=== PATIENT | female | born 1980 | race Caucasian/White ===

== ENCOUNTER 2021-02-02 15:28 | Emergency (ER) | payer MEDICAID ==
--- NOTE | 2021-02-02 16:07 | EDM.PDOC ---
ED HPI GENERAL MEDICAL PROBLEM - General Chief Complaint: Respiratory Problem Stated Complaint: TROUBLES BREATHING Time Seen by Provider: 02/02/21 15:44 Source of Information: Reports: Patient, RN Notes Reviewed History Limitations: Reports: No Limitations - History of Present Illness INITIAL COMMENTS - FREE TEXT/NARRATIVE: Patient is a 40-year-old female presenting to the emergency department with complaints of cough, shortness of breath, congestion, sinus pressure with ear pressure, and sore throat that began on Monday. Reports that her son was sick first and then she developed symptoms shortly thereafter. She has had pneumonia in the past and is concerned that this could be what is wrong. She did have Covid in August, however was asymptomatic. Denies any fever or chills. She has no chronic lung conditions, however she is a smoker. She tried using her son's albuterol inhaler at home and states that it provided little relief. Vital signs on triage were found to be normal. She is afebrile and oxygen saturation was 95% on room air. - Related Data Allergies Allergy/AdvReac Type Severity Reaction Status Date / Time Penicillins Allergy Hives Verified 02/02/21 15:54 succinylcholine Allergy Cardiac Verified 02/02/21 15:54 Arrest Home Meds: Home Meds Albuterol/Ipratropium [DuoNeb 3.0-0.5 MG/3 ML] 3 ml .XX Q4H PRN #15 neb 02/02/21 [Rx] Celecoxib 200 mg PO DAILY 02/02/21 [History] Spironolactone 50 mg PO DAILY 02/02/21 [History] Venlafaxine HCl [Venlafaxine HCl ER] 150 mg PO DAILY 02/02/21 [History] levoFLOXacin [Levaquin] 750 mg PO DAILY 5 Days #5 tab 02/02/21 [Rx] metFORMIN [Glucophage] 500 mg PO DAILY 02/02/21 [History] Past Medical History - Past Health History Medical/Surgical History: Denies Medical/Surgical History Respiratory History: Reports: Pneumonia, Recurrent - Infectious Disease History Infectious Disease History: Reports: Novel Coronavirus - Past Surgical History HEENT Surgical History: Reports: Tonsillectomy Other Female Surgeries/Procedures: exploratory laproscopy Neurological Surgical History: Reports: Lumbar Spine Social & Family History - Tobacco Use Tobacco Use Status *Q: Current Every Day Tobacco User Years of Tobacco use: 27 Packs/Tins Daily: 2 - Recreational Drug Use Recreational Drug Use: No ED ROS GENERAL - Review of Systems Review Of Systems: See Below Constitutional: Denies: Fever, Chills, Weakness HEENT: Reports: Ear Pain, Rhinitis, Sinus Problem, Throat Pain Respiratory: Reports: Shortness of Breath, Wheezing, Cough, Sputum. Denies: Pleuritic Chest Pain, Hemoptysis Cardiovascular: Reports: No Symptoms Endocrine: Reports: No Symptoms GI/Abdominal: Reports: No Symptoms : Reports: No Symptoms Musculoskeletal: Reports: No Symptoms Skin: Reports: No Symptoms Neurological: Reports: No Symptoms Psychiatric: Reports: No Symptoms Hematologic/Lymphatic: Reports: No Symptoms Immunologic: Reports: No Symptoms ED EXAM, GENERAL - Physical Exam Exam: See Below Exam Limited By: No Limitations General Appearance: Alert, WD/WN, No Apparent Distress Respiratory/Chest: No Respiratory Distress, Crackles (Fine to the right lower lobe), Wheezing (Faint expiratory throughout) Cardiovascular: Normal Peripheral Pulses, Regular Rate, Rhythm, No Edema, No Gallop, No JVD, No Murmur, No Rub GI/Abdominal: Normal Bowel Sounds, Soft, Non-Tender, No Organomegaly, No Distent ion, No Abnormal Bruit, No Mass Neurological: Alert, Oriented, CN II-XII Intact, Normal Cognition, Normal Gait, Normal Reflexes, No Motor/Sensory Deficits Psychiatric: Normal Affect, Normal Mood Skin Exam: Warm, Dry, Intact, Normal Color, No Rash Course - Vital Signs Last Recorded V/S: Last Vital Signs Temp 96.8 F L 02/02/21 15:42 Pulse 79 02/02/21 18:42 Resp 20 02/02/21 18:42 BP 122/66 02/02/21 18:42 Pulse Ox 94 L 02/02/21 18:42 - Orders/Labs/Meds Orders: Active Orders 24 hr Category Date Time Status Chest 1V Frontal [CR] Stat Exams 02/02/21 15:52 Taken Labs: Laboratory Tests 02/02/21 02/02/21 02/02/21 Range/Units 16:18 16:40 16:40 WBC 14.23 H (3.98-10.04) K/mm3 RBC 5.24 H (3.98-5.22) M/mm3 Hgb 15.9 H (11.2-15.7) gm/dl Hct 48.5 H (34.1-44.9) % MCV 92.6 (79.4-94.8) fl MCH 30.3 (25.6-32.2) pg MCHC 32.8 (32.2-35.5) g/dl RDW Std Deviation 52.5 H (36.4-46.3) fL Plt Count 297 (182-369) K/mm3 MPV 9.8 (9.4-12.3) fl Neut % (Auto) 59.8 (34.0-71.1) % Lymph % (Auto) 28.0 (19.3-51.7) % [place]urel % (Auto) 7.9 (4.7-12.5) % Eos % (Auto) 3.7 (0.7-5.8) Baso % (Auto) 0.2 (0.1-1.2) % Neut # (Auto) 8.52 H (1.56-6.13) K/mm3 Lymph # (Auto) 3.98 H (1.18-3.74) K/mm3 Laurel # (Auto) 1.13 H (0.24-0.36) K/mm3 Eos # (Auto) 0.52 H (0.04-0.36) K/mm3 Baso # (Auto) 0.03 (0.01-0.08) K/mm3 Manual Slide Review Sodium 138 (136-145) mEq/L Potassium 4.5 (3.5-5.1) mEq/L Chloride 102 (98-107) mEq/L Carbon Dioxide 28 (21-32) mEq/L Anion Gap 12.5 (5-15) BUN 16 (7-18) mg/dL Creatinine 0.8 (0.55-1.02) mg/dL Est Cr Clr Drug Dosing 71.24 mL/min Estimated GFR (MDRD) > 60 (>60) mL/min BUN/Creatinine Ratio 20.0 H (14-18) Glucose 89 (70-99) mg/dL Calcium 9.2 (8.5-10.1) mg/dL Total Bilirubin 0.3 (0.2-1.0) mg/dL AST 23 (15-37) U/L ALT 43 (14-59) U/L Alkaline Phosphatase 73 (46-116) U/L C-Reactive Protein 4.0 H* (<1.0) mg/dL Total Protein 7.7 (6.4-8.2) g/dl Albumin 3.4 (3.4-5.0) g/dl Globulin 4.3 gm/dL Albumin/Globulin Ratio 0.8 L (1-2) SARS-CoV-2 RNA (MARJAN) Negative (NEGATIVE) Meds: Medications Discontinued Medications Generic Name Dose Route Start Last Admin Trade Name Freq PRN Reason Stop Dose Admin Albuterol/Ipratropium 3 ml 02/02/21 17:57 02/02/21 18:09 Albuterol/Ipratropium 3.0-0.5 Mg/3 Ml Neb Soln NEB 02/02/21 17:58 3 ml ONETIME ONE Administration - Re-Assessments/Exams Free Text/Narrative Re-Assessment/Exam: 02/02/21 18:25 Chest x-ray does not show any definitive areas of pneumonia, however there is shadowing in the bilateral lower lobes so it is difficult to rule out a possible pneumonia. Patient's white blood cells are elevated at 14.23 and CRP elevated at 4.0. Patient takes Bactrim daily for prevention of hidradenitis suppurative. She reports that she did have improvement in her shortness of breath after the DuoNeb treatment. Given her elevation in white blood cells and CRP, I will treat for pneumonia. Since she is currently on antimicrobial, Levaquin would be the appropriate treatment. Discussed risks of tendon rupture with this medication and patient verbalized understanding. I will also send prescription for DuoNeb breathing treatments. Discussed return precautions. Discharge instructions as documented. Departure - Departure Time of Disposition: 18:25 Disposition: Home, Self-Care 01 Condition: Good Clinical Impression: Pneumonia Qualifiers: Pneumonia type: due to other aerobic Gram-negative bacteria Laterality: unspecified laterality Lung location: unspecified part of lung Qualified Code(s): J15.6 - Pneumonia due to other Gram-negative bacteria - Discharge Information *PRESCRIPTION DRUG MONITORING PROGRAM REVIEWED*: No *COPY OF PRESCRIPTION DRUG MONITORING REPORT IN PATIENT DIMITRIOS: No Prescriptions: Albuterol/Ipratropium [DuoNeb 3.0-0.5 MG/3 ML] 3 ml .XX Q4H PRN #15 neb PRN Reason: Shortness Of Breath levoFLOXacin [Levaquin] 750 mg PO DAILY 5 Days #5 tab Instructions: Shortness of Breath, Adult, [id number], Community-Acquired Pneumonia, Adult Referrals: Caroline Newell NP [Primary Care Provider] - Forms: ED Department Discharge Additional Instructions: You were seen in the emergency department today for cough and shortness of breath. Work-up included blood work, Covid test, and chest x-ray. As we discussed, it is difficult to discern on the chest x-ray if there is a pneumonia given shadowing in the lower lobes. You do have an elevated white blood cells and your inflammatory marker slightly elevated. Since you are currently on Bactrim, the appropriate medication to treat for possible pneumonia would be Levaquin. Prescription for this has been sent to [facility]. Have also sent prescription for DuoNeb breathing treatments. Uses as prescribed. If your symptoms should fail to improve over the next few days or worsen in any way, please not hesitate to return to the ER for reevaluation. Sepsis Event Note (ED) - Evaluation Sepsis Screening Result: No Definite Risk - Focused Exam Vital Signs: Vital Signs Temp Pulse Resp BP Pulse Ox Pulse Ox 02/02/21 18:42 79 20 122/66 94 L 02/02/21 17:57 95 02/02/21 15:42 96.8 F L 89 18 123/64 - My Orders Last 24 Hours: My Active Orders 02/02/21 15:52 Chest 1V Frontal [CR] Stat - Assessment/Plan Last 24 Hours: My Active Orders 02/02/21 15:52 Chest 1V Frontal [CR] Stat
[2021-02-02] MEDS ORDERED: Albuterol/Ipratropium 3.0-0.5 MG/3 ML Neb Soln NEB ONE (17:57)
--- NOTE | 2021-02-03 09:48 | CR ---
Chest: Portable view of the chest was obtained. Comparison: Prior chest x-ray of 06/17/13. Heart size and mediastinum are within normal limits for portable technique. Small linear area of atelectasis is seen within the left lung base. Minimal bronchitis is noted on both sides. Lungs otherwise are clear. Bony structures are grossly intact. Impression: 1. Minimal bilateral bronchitis. 2. Minimal left basilar atelectasis. Diagnostic code #3
== END 2021-02-02 18:42 | disposition home or self-care (01) ==
LOC: JD.ED 15:28
DX: J15.6 Pneumonia due to other Gram-negative bacteria (principal); F17.200 Nicotine dependence, unspecified, uncomplicated; Z88.0 Allergy status to penicillin; Z88.4 Allergy status to anesthetic agent; Z79.899 Other long term (current) drug therapy; Z20.822 Contact with and (suspected) exposure to COVID-19
CPT/HCPCS: 36415; 71045; 71045-26; 80053; 85025; 86140; 94640; 99283; 99285-25; J7620-GY; U0002

== ENCOUNTER 2025-06-27 15:39 | Emergency (ER) | payer MEDICAID | END 2025-06-27 17:40 | disposition home or self-care (01) | LOC: JD.ED 15:39 | DX: M62.838 Other muscle spasm (principal); K21.9 Gastro-esophageal reflux disease without esophagitis; E66.9 Obesity, unspecified; Z86.16 Personal history of COVID-19; Z79.899 Other long term (current) drug therapy; Z79.82 Long term (current) use of aspirin; Z88.5 Allergy status to narcotic agent; Z88.0 Allergy status to penicillin; Z88.8 Allergy status to other drugs, medicaments and biological substances; Z68.41 Body mass index [BMI] 40.0-44.9, adult | CPT/HCPCS: 99283 ==